=== PATIENT | female | born 1985 | race Caucasian/White ===

== ENCOUNTER 2022-07-11 23:13 | Emergency (ER) | payer BC ==
[2022-07-11 23:26] VITALS: RESP 16; TEMP 97.7
[2022-07-11] MEDS ORDERED: SODIUM CHLORIDE 0.9% 1,000 ML IV STA (23:53)
[2022-07-11] MEDS ORDERED: METOCLOPRAMIDE 5 MG/ML 2 ML VIAL IVP STA (23:53)
[2022-07-12 00:10] LABS: Basophils % (A) 0 %; Eosinophils # (A) 0.2 k/uL (0-0.7); Eosinophils % (A) 2 %; HCT 43.1 % (34.0-46.0); HGB 14.9 gm/dL (11.4-16.0); Lymphocytes # (A) 2.5 k/uL (1.0-4.8); Lymphocytes % (A) 29 %; MCH 29.9 pg (25.0-35.0); MCHC 34.5 g/dL (31.0-37.0); MCV 86.7 fL (80.0-100.0); Monocytes # (A) 0.4 k/uL (0-1.0); Monocytes % (A) 5 %; Neutrophils # (A) 5.2 k/uL (1.3-7.7); Neutrophils % (A) 62 %; Platelet Count 252 k/uL (150-450); RBC 4.97 m/uL (3.80-5.40); RDW 12.4 % (11.5-15.5); WBC 8.4 k/uL (3.8-10.6)
[2022-07-12 00:21] LABS: ALT 120 U/L (4-34); AST 77 U/L (14-36); African American GFR (CKD) >90 (>60 ml/min/1.73 sqM); Albumin 4.8 g/dL (3.5-5.0); Alkaline Phosphatase 93 U/L (38-126); Amylase 49 U/L (30-110); Anion Gap 14 mmol/L; Blood Urea Nitrogen 12 mg/dL (7-17); Carbon Dioxide 24 mmol/L (22-30); Chloride 100 mmol/L (98-107); Glucose 168 mg/dL (74-99); Lipase 106 U/L (23-300); Non-African American GFR(CKD) >90 (>60 ml/min/1.73 sqM); Potassium 3.3 mmol/L (3.5-5.1); Sodium 138 mmol/L (137-145); Total Bilirubin 0.9 mg/dL (0.2-1.3); Total Protein 8.6 g/dL (6.3-8.2)
[2022-07-12] MEDS ORDERED: POTASSIUM CHLORIDE ER 20 MEQ TAB.ER PO STA (00:29)
--- NOTE | 2022-07-12 00:35 | ED ---
Nausea/Vomiting/Diarrhea HPI - General Chief complaint: Nausea/Vomiting/Diarrhea Stated complaint: Nausea, vomitting Time Seen by Provider: 07/11/22 23:48 Source: patient Mode of arrival: ambulatory Limitations: no limitations - History of Present Illness Initial comments: Patient is a 37-year-old female presenting with chief complaint of nausea vomiting diarrhea for the last 4 days. Patient states that yesterday she was improving but today she was unable to tolerate fluids. No localized abdominal pain. No hematemesis, hematochezia, melena. No chest pain or difficulty breathing. Patient states that she can feel her heart racing. No fevers or chills. No dysuria, hematuria, urgency, frequency. - Related Data Allergies Allergy/AdvReac Type Severity Reaction Status Date / Time Sulfa (Sulfonamide Allergy Rash/Hives Verified 07/11/22 23:59 Antibiotics) Review of Systems ROS Statement: Those systems with pertinent positive or pertinent negative responses have been documented in the HPI. ROS Other: All systems not noted in ROS Statement are negative. General Exam Limitations: no limitations General appearance: alert, in no apparent distress Head exam: Present: atraumatic, normocephalic, normal inspection Eye exam: Present: normal appearance Neck exam: Present: normal inspection, full ROM Respiratory exam: Present: normal lung sounds bilaterally. Absent: respiratory distress, wheezes, rales, rhonchi, stridor Cardiovascular Exam: Present: normal rhythm, tachycardia, normal heart sounds. Absent: systolic murmur, diastolic murmur, rubs, gallop, clicks GI/Abdominal exam: Present: soft. Absent: distended, tenderness, guarding, rebound, rigid Neurological exam: Present: alert, oriented X3, CN II-XII intact Psychiatric exam: Present: normal affect, normal mood Skin exam: Present: warm, dry, intact, normal color. Absent: rash Course Vital Signs 07/11/22 07/12/22 23:24 01:33 Temperature 97.7 F Pulse Rate 121 H 80 Respiratory 16 16 Rate Blood Pressure 172/108 138/86 O2 Sat by Pulse 96 99 Oximetry Medical Decision Making - Medical Decision Making Was pt. sent in by a medical professional or institution (, PA, BLIND SLAT STAPLING MACHINE OPERATOR, urgent care, hospital, or [facility]...) When possible be specific @ -No Did you speak to anyone other than the patient for history (EMS, parent, family, police, friend...)? What history was obtained from this source @ -No Did you review nursing and triage notes (agree or disagree)? Why? @ -I reviewed and agree with nursing and triage notes Were old charts reviewed (outside hosp., previous admission, EMS record, old EKG, old radiological studies, urgent care reports/EKG's, [facility] records)? Report findings @ -No old charts were reviewed Differential Diagnosis (chest pain, altered mental status, abdominal pain women, abdominal pain men, vaginal bleeding, weakness, fever, dyspnea, syncope, headache, dizziness, GI bleed, back pain, seizure, CVA, palpatations, mental health, musculoskeletal)? @ -Differential includes gastroenteritis, cholecystitis, pancreatitis, appendicitis, ACS, this is not an all inclusive list EKG interpreted by me (3pts min.). @ -As above X-rays interpreted by me (1pt min.). @ -None done CT interpreted by me (1pt min.). @ -None done U/S interpreted by me (1pt. min.). @ -None done What testing was considered but not performed or refused? (CT, X-rays, U/S, labs)? Why? @ -None What meds were considered but not given or refused? Why? @ -None Did you discuss the management of the patient with other professionals (professionals i.e. , PA, BLIND SLAT STAPLING MACHINE OPERATOR, lab, RT, psych nurse, social work nurse, designer architect, teacher, helicopter officer, family caseworker)? Give summary @ -No Was smoking cessation discussed for >3mins.? @ -No Was critical care preformed (if so, how long)? @ -No Were there social determinants of health that impacted care today? How? (Homelessness, low income, unemployed, alcoholism, drug addiction, transportation, low edu. Level, literacy, decrease access to med. care, correction, rehab)? @ -No Was there de-escalation of care discussed even if they declined (Discuss DNR or withdrawal of care, Hospice)? DNR status @ -No What co-morbidities impacted this encounter? (DM, HTN, Smoking, COPD, CAD, Cancer, CVA, ARF, Chemo, Hep., AIDS, mental health diagnosis, sleep apnea, morbid obesity)? @ -None Was patient admitted / discharged? Hospital course, mention meds given and route, prescriptions, significant lab abnormalities, going to OR and other pertinent info. @ -Patient is a 37-year-old female presenting with chief complaint of nausea, vomiting, diarrhea. Last 4 days. Physical examination is unremarkable. Laboratories no leukocytosis or anemia. Potassium is 3.3, patient will receive oral replacement. Transaminitis as noted, patient has history of elevated LFTs. Urine shows signs of dehydration, hCG is negative. Patient is receiving IV fluids as well Reglan. On reassessment she reports resolution of her symptoms and wishes to be discharged home. Follow-up with PCP. Report back to ER with any new or worsening symptoms. Discussed return parameters and answered all questions. Patient conveyed verbal understanding and agreed to the plan. I discussed this case in detail with my attending Dr. Montoya Undiagnosed new problem with uncertain prognosis? @ -No Drug Therapy requiring intensive monitoring for toxicity (Heparin, Nitro, Insulin, Cardizem)? @ -No Were any procedures done? @ -No Diagnosis/symptom? @ -Gastroenteritis Acute, or Chronic, or Acute on Chronic? @ -Acute Uncomplicated (without systemic symptoms) or Complicated (systemic symptoms)? @ -Uncomplicated Side effects of treatment? @ -No Exacerbation, Progression, or Severe Exacerbation? @ -No Poses a threat to life or bodily function? How? (Chest pain, USA, PA, pneumonia, PE, COPD, DKA, ARF, appy, cholecystitis, CVA, Diverticulitis, Homicidal, Suicidal, threat to staff... and all critical care pts) @ -No - Lab Data Result diagrams: 07/12/22 00:05 07/12/22 00:05 Lab Results 07/12/22 07/12/22 07/12/22 Range/Units 00:05 00:05 00:54 WBC 8.4 (3.8-10.6) k/uL RBC 4.97 (3.80-5.40) m/uL Hgb 14.9 (11.4-16.0) gm/dL Hct 43.1 (34.0-46.0) % MCV 86.7 (80.0-100.0) fL MCH 29.9 (25.0-35.0) pg MCHC 34.5 (31.0-37.0) g/dL RDW 12.4 (11.5-15.5) % Plt Count 252 (150-450) k/uL MPV 8.0 Neutrophils % 62 % Lymphocytes % 29 % Monocytes % 5 % Eosinophils % 2 % Basophils % 0 % Neutrophils # 5.2 (1.3-7.7) k/uL Lymphocytes # 2.5 (1.0-4.8) k/uL Monocytes # 0.4 (0-1.0) k/uL Eosinophils # 0.2 (0-0.7) k/uL Basophils # 0.0 (0-0.2) k/uL Sodium 138 (137-145) mmol/L Potassium 3.3 L (3.5-5.1) mmol/L Chloride 100 (98-107) mmol/L Carbon Dioxide 24 (22-30) mmol/L Anion Gap 14 mmol/L BUN 12 (7-17) mg/dL Creatinine 0.64 (0.52-1.04) mg/dL Est GFR (CKD-EPI)AfAm >90 (>60 ml/min/1.73 sqM) Est GFR (CKD-EPI)NonAf >90 (>60 ml/min/1.73 sqM) Glucose 168 H (74-99) mg/dL Calcium 9.0 (8.4-10.2) mg/dL Total Bilirubin 0.9 (0.2-1.3) mg/dL AST 77 H (14-36) U/L ALT 120 H (4-34) U/L Alkaline Phosphatase 93 (38-126) U/L Total Protein 8.6 H (6.3-8.2) g/dL Albumin 4.8 (3.5-5.0) g/dL Amylase 49 (30-110) U/L Lipase 106 (23-300) U/L Urine Color Yellow Urine Appearance Clear (Clear) Urine pH 5.5 (5.0-8.0) Ur Specific [place] 1.015 (1.001-1.035) Urine Protein 1+ H (Negative) Urine Glucose (UA) 1+ H (Negative) Urine Ketones 1+ H (Negative) Urine Blood Trace H (Negative) Urine Nitrite Negative (Negative) Urine Bilirubin Negative (Negative) Urine Urobilinogen <2.0 (<2.0) mg/dL Ur Leukocyte Esterase Small H (Negative) Urine RBC 2 (0-5) /hpf Urine WBC 3 (0-5) /hpf Ur Squamous Epith Cells 2 (0-4) /hpf Urine Bacteria Occasional H (None) /hpf Hyaline Casts 1 (0-2) /lpf Urine Mucus Few H (None) /hpf Urine HCG, Qual (Not Detectd) 07/12/22 Range/Units 00:54 WBC (3.8-10.6) k/uL RBC (3.80-5.40) m/uL Hgb (11.4-16.0) gm/dL Hct (34.0-46.0) % MCV (80.0-100.0) fL MCH (25.0-35.0) pg MCHC (31.0-37.0) g/dL RDW (11.5-15.5) % Plt Count (150-450) k/uL MPV Neutrophils % % Lymphocytes % % Monocytes % % Eosinophils % % Basophils % % Neutrophils # (1.3-7.7) k/uL Lymphocytes # (1.0-4.8) k/uL Monocytes # (0-1.0) k/uL Eosinophils # (0-0.7) k/uL Basophils # (0-0.2) k/uL Sodium (137-145) mmol/L Potassium (3.5-5.1) mmol/L Chloride (98-107) mmol/L Carbon Dioxide (22-30) mmol/L Anion Gap mmol/L BUN (7-17) mg/dL Creatinine (0.52-1.04) mg/dL Est GFR (CKD-EPI)AfAm (>60 ml/min/1.73 sqM) Est GFR (CKD-EPI)NonAf (>60 ml/min/1.73 sqM) Glucose (74-99) mg/dL Calcium (8.4-10.2) mg/dL Total Bilirubin (0.2-1.3) mg/dL AST (14-36) U/L ALT (4-34) U/L Alkaline Phosphatase (38-126) U/L Total Protein (6.3-8.2) g/dL Albumin (3.5-5.0) g/dL Amylase (30-110) U/L Lipase (23-300) U/L Urine Color Urine Appearance (Clear) Urine pH (5.0-8.0) Ur Specific [place] (1.001-1.035) Urine Protein (Negative) Urine Glucose (UA) (Negative) Urine Ketones (Negative) Urine Blood (Negative) Urine Nitrite (Negative) Urine Bilirubin (Negative) Urine Urobilinogen (<2.0) mg/dL Ur Leukocyte Esterase (Negative) Urine RBC (0-5) /hpf Urine WBC (0-5) /hpf Ur Squamous Epith Cells (0-4) /hpf Urine Bacteria (None) /hpf Hyaline Casts (0-2) /lpf Urine Mucus (None) /hpf Urine HCG, Qual Not Detected (Not Detectd) Disposition Clinical Impression: Nausea & vomiting Disposition: HOME SELF-CARE Condition: Good Instructions (If sedation given, give patient instructions): Acute Nausea and Vomiting (ED) Additional Instructions: Follow-up with PCP. Report back to ER with any new or worsening symptoms. Take Zofran as prescribed. Is patient prescribed a controlled substance at d/c from ED?: No Referrals: Aryan Owens MD [Primary Care Provider] - 1-2 days Time of Disposition: 01:22
[2022-07-12 01:03] LABS: Appearance,Urine Clear (Clear); Bacteria,Urine Occasional /hpf; Bilirubin,Urine Negative (Negative); Blood,Urine Trace (Negative); Color,Urine Yellow; Glucose,Urine (UA) 1+ (Negative); Hyaline Casts,Urine 1 /lpf (0-2); Ketones,Urine 1+ (Negative); Leukocyte Esterase,Urine Small (Negative); Mucus,Urine Few /hpf; Nitrite,Urine Negative (Negative); PH, Urine 5.5 (5.0-8.0); Protein,Urine 1+ (Negative); RBC,Urine 2 /hpf (0-5); Specific Gravity,Urine 1.015 (1.001-1.035); Squamous Epithelial Cell,Urine 2 /hpf (0-4); Urobilinogen,Urine <2.0 mg/dL (<2.0); WBC,Urine 3 /hpf (0-5)
[2022-07-12 01:34] VITALS: BP 138/86; PULSE 80
== END 2022-07-12 01:32 | disposition home or self-care (01) ==
LOC: EC 23:13
DX: R11.2 Nausea with vomiting, unspecified (principal); Z88.2 Allergy status to sulfonamides
CPT/HCPCS: 36415; 93005; 80053; 82150; 83690; 85025; 81001; 81025; 99284; 96374; 96361; J2765

== ENCOUNTER 2022-10-17 20:45 | Observation (INO) | payer BC ==
[2022-10-17] MEDS ORDERED: ONDANSETRON 4 MG/2 ML VIAL IVP STA (21:43)
[2022-10-17] MEDS ORDERED: PANTOPRAZOLE 40 MG/10 ML VIAL IVP STA (21:43)
[2022-10-17] MEDS ORDERED: SODIUM CHLORIDE 0.9% 1,000 ML IV STA (21:43)
--- NOTE | 2022-10-17 21:46 | ED ---
General Adult HPI - General Chief complaint: Arrhythmia/Palpitations Stated complaint: Palpitations N/V/ Time Seen by Provider: 10/17/22 21:26 Source: patient Mode of arrival: ambulatory - History of Present Illness Initial comments: Dictation was produced using [employer] dictation software. please excuse any grammatical, word or spelling errors. Chief Complaint: 37-year-old female presents emergency department for nausea vomiting tachycardia History of Present Illness: She is 37-year-old female she has past medical history of tachycardia. She takes rate controlling medications. Patient over the last approximately 12 hours has been experiencing intractable nausea and vomiting. Patient's exposed her who is sick with cold of flulike symptoms. Patient has a fever. Patient reports that her symptoms are severe temperature seat or drink she immediately vomits. States that her emesis is nonbilious not bloody. She does report some discomfort whenever she tries to take anything orally. Denies any fever or constitutional symptoms. No sore t hroat or runny nose. no cough or respiratory symptoms. Patient has any abdominal pain currently. The ROS documented in this emergency department record has been reviewed and confirmed by me. Those systems with pertinent positive or negative responses have been documented in the HPI. All other systems are other negative and/or noncontributory. - Related Data Allergies Allergy/AdvReac Type Severity Reaction Status Date / Time pineapple Allergy Anaphylaxis Verified 10/17/22 21:19 Sulfa (Sulfonamide Allergy Rash/Hives Verified 10/17/22 21:19 Antibiotics) Review of Systems ROS Statement: Those systems with pertinent positive or pertinent negative responses have been documented in the HPI. ROS Other: All systems not noted in ROS Statement are negative. Past Medical History Past Medical History: Diabetes Mellitus Additional Past Medical History / Comment(s): inappropriate sinus tachycardia, type 1 Past Surgical History: Adenoidectomy, Cholecystectomy, Tonsillectomy Additional Past Surgical History / Comment(s): endometriosis laproscopy Past Psychological History: Anxiety Smoking Status: Never smoker Past Alcohol Use History: None Reported Past Drug Use History: Marijuana General Exam - General Exam Comments Initial Comments: PHYSICAL EXAM: General Impression: Alert and oriented x3, not in acute distress HEENT: Normocephalic atraumatic, extra-ocular movements intact, pupils equal and reactive to light bilaterally, mucous membranes moist. Cardiovascular: Heart regular rate and rhythm Chest: Able to complete full sentences, no retractions, no tachypnea Abdomen: abdomen soft, non-tender, non-distended, no organomegaly Musculoskeletal: Pulses present and equal in all extremities, no peripheral edema Motor: no focal deficits noted Neurological: CN II-XII grossly intact, no focal motor or sensory deficits noted Skin: Intact with no visualized rashes Psych: Normal affect and mood Course Vital Signs 10/17/22 21:13 Temperature 97.7 F Pulse Rate 122 H Respiratory 22 Rate Blood Pressure 186/110 O2 Sat by Pulse 99 Oximetry Medical Decision Making - Medical Decision Making Was pt. sent in by a medical professional or institution (, PA, NURSE CHEMICAL DEPENDENCY, urgent care, hospital, or detention...) When possible be specific @ -[No] Did you speak to anyone other than the patient for history (EMS, parent, family, police, friend...)? What history was obtained from this source @ -[No] Did you review nursing and triage notes (agree or disagree)? Why? @ -[I reviewed and agree with nursing and triage notes] Were old charts reviewed (outside hosp., previous admission, EMS record, old EKG, old radiological studies, urgent care reports/EKG's, detention records)? Report findings @ -[No old charts were reviewed] Differential Diagnosis (chest pain, altered mental status, abdominal pain women, abdominal pain men, vaginal bleeding, musculoskeletal, weakness, fever, dyspnea, syncope, headache, dizziness, GI bleed, back pain, seizure, CVA, palpatations, mental health)? @ -Differential Abdominal Pain Women: Appendicitis, Cholecystitis, diverticulosis, ischemic bowel, pancreatitis, hepatitis, UTI, gastroenteritis, AAA, incarcerated hernia, bowel obstruction, constipation, inflammatory bowel, hepatitis, peptic ulcer disease, splenic i nfarction, perforated viscus, vulvitis, ovarian torsion, PID, kidney stone, placenta abruption, this is not meant to be an all-inclusive list EKG interpreted by me (3pts min.). @ -[None done] X-rays interpreted by me (1pt min.). @ -[None done] CT interpreted by me (1pt min.). @ -[None done] U/S interpreted by me (1pt. min.). @ -[None done] What testing was considered but not performed or refused? (CT, X-rays, U/S, labs)? Why? @ -[None] What meds were considered but not given or refused? Why? @ -[None] Did you discuss the management of the patient with other professionals (professionals i.e. , PA, NURSE CHEMICAL DEPENDENCY, lab, RT, psych nurse, socially responsible investment adviser, hybrid corn breeder, teacher, engineering officer, case folder)? Give summary @ -[No] Was smoking cessation discussed for >3mins.? @ -[No] Was critical care preformed (if so, how long)? @ -[No] Were there social determinants of health that impacted care today? How? (Homelessness, low income, unemployed, alcoholism, drug addiction, transportation, low edu. Level, literacy, decrease access to med. care, retirement, rehab)? @ -[No] Was there de-escalation of care discussed even if they declined (Discuss DNR or withdrawal of care, Hospice)? DNR status @ -[No] What co-morbidities impacted this encounter? (DM, HTN, Smoking, COPD, CAD, C ancer, CVA, ARF, Chemo, Hep., AIDS, mental health diagnosis, sleep apnea, morbid obesity)? @ -Arrhythmias Was patient admitted / discharged? Hospital course, mention meds given and route, prescriptions, significant lab abnormalities, going to OR and other pertinent info. @ -37-year-old female presents with intractable vomiting. Vital signs are stable. She is tachycardic but his baseline has tachycardia. She takes chronic medications to suppress tachydysrhythmias. Labs are within acceptable limits. Disposition options were discussed. Patient is agreeable for admission due to risk of converting to tach dysrhythmia especially if she is unable to tolerate oral intake Undiagnosed new problem with uncertain prognosis? @ -[No] Drug Therapy requiring intensive monitoring for toxicity (Heparin, Nitro, Insulin, Cardizem)? @ -[No] Were any procedures done? @ -[No] Diagnosis/symptom? Acute, or Chronic, or Acute on Chronic? Uncomplicated (without systemic symptoms) or Complicated (systemic symptoms)? @ -[default] Side effects of treatment? @ -[No] Exacerbation, Progression, or Severe Exacerbation? @ -[No] Poses a threat to life or bodily function? How? (Chest pain, USA, [place], pneumonia, PE, COPD, DKA, ARF, appy, cholecystitis, CVA, Diverticulitis, Homicidal, Suicidal, threat to staff... and all critical care pts) @ -[No] - Lab Data Result diagrams: 10/17/22 22:20 10/17/22 22:20 Lab Results 10/17/22 10/17/22 10/17/22 Range/Units 22:20 22:20 22:20 WBC 9.7 (3.8-10.6) k/uL RBC 4.87 (3.80-5.40) m/uL Hgb 14.8 (11.4-16.0) gm/dL Hct 43.2 (34.0-46.0) % MCV 88.6 (80.0-100.0) fL MCH 30.3 (25.0-35.0) pg MCHC 34.2 (31.0-37.0) g/dL RDW 12.4 (11.5-15.5) % Plt Count 264 (150-450) k/uL MPV 7.6 Neutrophils % 81 % Lymphocytes % 14 % Monocytes % 4 % Eosinophils % 1 % Basophils % 0 % Neutrophils # 7.8 H (1.3-7.7) k/uL Lymphocytes # 1.3 (1.0-4.8) k/uL Monocytes # 0.4 (0-1.0) k/uL Eosinophils # 0.1 (0-0.7) k/uL Basophils # 0.0 (0-0.2) k/uL Sodium 137 (137-145) mmol/L Potassium 3.4 L (3.5-5.1) mmol/L Chloride 97 L (98-107) mmol/L Carbon Dioxide 26 (22-30) mmol/L Anion Gap 14 mmol/L BUN 9 (7-17) mg/dL Creatinine 0.53 (0.52-1.04) mg/dL Est GFR (CKD-EPI)AfAm >90 (>60 ml/min/1.73 sqM) Est GFR (CKD-EPI)NonAf >90 (>60 ml/min/1.73 sqM) Glucose 154 H (74-99) mg/dL Calcium 9.3 (8.4-10.2) mg/dL Magnesium 1.8 (1.6-2.3) mg/dL Troponin I <0.012 (0.000-0.034) ng/mL HCG, Quant <2.4 mIU/mL Disposition Clinical Impression: Gastroenteritis Disposition: ADMITTED IP TO THIS HOSP Condition: Fair Referrals: Aryan Owens MD [Primary Care Provider] - 1-2 days Decision Time: 00:47
[2022-10-17 22:52] LABS: African American GFR (CKD) >90 (>60 ml/min/1.73 sqM); Anion Gap 14 mmol/L; Blood Urea Nitrogen 9 mg/dL (7-17); Calcium 9.3 mg/dL (8.4-10.2); Carbon Dioxide 26 mmol/L (22-30); Chloride 97 mmol/L (98-107); Glucose 154 mg/dL (74-99); Magnesium 1.8 mg/dL (1.6-2.3); Non-African American GFR(CKD) >90 (>60 ml/min/1.73 sqM); Potassium 3.4 mmol/L (3.5-5.1); Sodium 137 mmol/L (137-145)
[2022-10-17 22:54] LABS: Basophils % (A) 0 %; Eosinophils # (A) 0.1 k/uL (0-0.7); Eosinophils % (A) 1 %; HCT 43.2 % (34.0-46.0); HGB 14.8 gm/dL (11.4-16.0); Lymphocytes # (A) 1.3 k/uL (1.0-4.8); Lymphocytes % (A) 14 %; MCH 30.3 pg (25.0-35.0); MCHC 34.2 g/dL (31.0-37.0); MCV 88.6 fL (80.0-100.0); Mean Platelet Volume 7.6; Monocytes # (A) 0.4 k/uL (0-1.0); Monocytes % (A) 4 %; Neutrophils # (A) 7.8 k/uL (1.3-7.7); Neutrophils % (A) 81 %; Platelet Count 264 k/uL (150-450); RBC 4.87 m/uL (3.80-5.40); RDW 12.4 % (11.5-15.5); WBC 9.7 k/uL (3.8-10.6)
[2022-10-17 23:08] LABS: HCG,Quantitative Serum <2.4 mIU/mL
[2022-10-17] MEDS ORDERED: MAG HYDROX/AL HYDROX/SIMETH 30 ML, HYOSCYAMINE ELIXIR 10 ML, LIDOCAINE 2% GLYDO JELLY 1... PO STA ×3 (23:29)
[2022-10-18] MEDS ORDERED: NALOXONE 0.4 MG/ML 1 ML VIAL IV PRN (00:42)
[2022-10-18] MEDS: SODIUM CHLORIDE 0.9% 1,000 ML IV SCH ×3 (01:13→16:39)
[2022-10-18] MEDS: ONDANSETRON 4 MG/2 ML VIAL IVP PRN ×3 (07:08→21:51)
[2022-10-18] MEDS: metFORMIN 500 MG TAB PO SCH ×2 (09:39→21:51)
[2022-10-18] MEDS: IVABRADINE HCL 7.5 MG PO SCH ×2 (09:40→21:51)
[2022-10-18 10:21] LABS: ALT 59 U/L (4-34); AST 52 U/L (14-36); African American GFR (CKD) >90 (>60 ml/min/1.73 sqM); Albumin 4.3 g/dL (3.5-5.0); Albumin/Globulin Ratio 1.2; Alkaline Phosphatase 83 U/L (38-126); Amylase 56 U/L (30-110); Anion Gap 11 mmol/L; Blood Urea Nitrogen 8 mg/dL (7-17); Calcium 8.5 mg/dL (8.4-10.2); Carbon Dioxide 25 mmol/L (22-30); Chloride 103 mmol/L (98-107); Globulin 3.6 g/dL; Glucose 114 mg/dL (74-99); Lipase 167 U/L (23-300); Non-African American GFR(CKD) >90 (>60 ml/min/1.73 sqM); Potassium 3.5 mmol/L (3.5-5.1); Sodium 139 mmol/L (137-145); Total Bilirubin 0.9 mg/dL (0.2-1.3); Total Protein 7.9 g/dL (6.3-8.2)
[2022-10-18] MEDS ORDERED: PANTOPRAZOLE 40 MG/10 ML VIAL IVP SCH (11:00)
[2022-10-18] MEDS: METOPROLOL SUCCINATE (ER) 25 MG TAB.ER.24H PO SCH (11:36)
[2022-10-18 12:13] LABS: Glucose,Whole Blood 102 mg/dL (70-110)
--- NOTE | 2022-10-18 12:57 | P.HPIM ---
History of Present Illness H&P Date: 10/18/22 History of present illness; patient is a 37-year-old lady with past medical history significant for insulin-dependent diabetes mellitus, tachycardias who presented to the hospital because of persistent nausea and vomiting. Patient has been vomiting nonstop for the last 24 hours, denies any abdominal pain. States whatever she tries to eat or drink she immediately vomited out. Denies any diarrhea or altered bowel movements. Denies any chest pain or shortness of breath. Patient also had fever at home. Because of persistent nausea and vomiting, patient came to the ER. Initial lab work done in the ER showed WBC 9.7, hemoglobin 14.8, platelet count 264, sodium 137, potassium 3.4, BUNs 9, creatinine 0.53, Patient was admitted to general medicine service for further evaluation and treatment REVIEW OF SYSTEMS: CONSTITUTIONAL: No fever, no malaise, no fatigue. HEENT: No recent visual problems or hearing problems. Denied any sore throat. CARDIOVASCULAR: No chest pain, orthopnea, PND, no palpitations, no syncope. PULMONARY: No shortness of breath, no cough, no hemoptysis. GASTROINTESTINAL: As mentioned in HPI NEUROLOGICAL: No headaches, no weakness, no numbness. HEMATOLOGICAL: Denies any bleeding or petechiae. GENITOURINARY: Denies any burning micturition, frequency, or urgency. MUSCULOSKELETAL/RHEUMATOLOGICAL: Denies any joint pain, swelling, or any muscle pain. ENDOCRINE: Denies any polyuria or polydipsia. The rest of the 14-point review of systems is negative. PHYSICAL EXAMINATION: GENERAL: The patient is alert and oriented x3, not in any acute distress. Well developed, well nourished. HEENT: Pupils are round and equally reacting to light. EOMI. No scleral icterus. No conjunctival pallor. Normocephalic, atraumatic. No pharyngeal erythema. No thyromegaly. CARDIOVASCULAR: S1 and S2 present. No murmurs, rubs, or gallops. PULMONARY: Chest is clear to auscultation, no wheezing or crackles. ABDOMEN: Soft, nontender, nondistended, normoactive bowel sounds. No palpable organomegaly. MUSCULOSKELETAL: No joint swelling or deformity. EXTREMITIES: No cyanosis, clubbing, or pedal edema. NEUROLOGICAL: Gross neurological examination did not reveal any focal deficits. SKIN: No rashes. Assessment and plan Nausea and vomiting Gastritis Hypokalemia Tachycardias Insulin-dependent diabetes mellitus Monitor vital signs Monitor CBC Order stat CMP Stat lipase level ordered Ultrasound abdomen Continue IV fluids Continue antiemetics Start IV Protonix 40 mg twice a day. Start Carafate resume home meds DVT prophylaxis: Past Medical History Past Medical History: Diabetes Mellitus Additional Past Medical History / Comment(s): inappropriate sinus tachycardia for [address]years [address] sees Dr. Soliman, DM type 1, pancreatitis History of Any Multi-Drug Resistant Organisms: None Reported Past Surgical History: Adenoidectomy, Cholecystectomy, Tonsillectomy Additional Past Surgical History / Comment(s): endometriosis laproscopy Past Anesthesia/Blood Transfusion Reactions: No Reported Reaction Past Psychological History: Anxiety Smoking Status: Never smoker Past Alcohol Use History: Rare Past Drug Use History: Marijuana Additional Drug Use History / Comment(s): occasional edibles - Past Family History Mother Family Medical History: Hyperlipidemia Father Family Medical History: Diabetes Mellitus Additional Family Medical History / Comment(s): inappropriate sinus tachycardia Medications and Allergies Home Medications Medication Instructions Recorded Confirmed Type ALPRAZolam [Xanax] 0.5 mg PO BID PRN 10/18/22 10/18/22 History Glucagon [Gvoke Pfs 1-Pack Syringe] 1 mg SQ ONCE PRN 10/18/22 10/18/22 History Insulin Aspart (Niacinamide) 20 - 30 units SQ AC-TID 10/18/22 10/18/22 History [Fiasp 100 Unit/ml Flextouch Pen] Insulin Glargine,Hum.rec.anlog 55 units SQ 10/18/22 10/18/22 History [Toujeo Solostar] Ivabradine HCl [Corlanor] 7.5 mg PO BID 10/18/22 10/18/22 History Levalbuterol Hfa Inhaler [Xopenex 1 puff INHALATION RT-QID PRN 10/18/22 10/18/22 History Hfa Inhaler] Metoprolol Succinate [Metoprolol 25 mg PO DAILY@1200 10/18/22 10/18/22 History Succinate ER] Montelukast [Singulair] 10 mg PO HS 10/18/22 10/18/22 History Omeprazole [PriLOSEC] 20 mg PO AC-BRKFST 10/18/22 10/18/22 History Pioglitazone [Actos] 15 mg PO DAILY 10/18/22 10/18/22 History Rizatriptan Odt [Maxalt Manager Of Health] 10 mg PO DAILY PRN 10/18/22 10/18/22 History Semaglutide [Rybelsus] 7 mg PO DAILY@0700 10/18/22 10/18/22 History lisinopriL 2.5 mg PO HS 10/18/22 10/18/22 History metFORMIN HCL ER [Glucophage XR] 1,000 mg PO DAILY 10/18/22 10/18/22 History metFORMIN HCL ER [Glucophage XR] 500 mg PO HS 10/18/22 10/18/22 History Allergies Allergy/AdvReac Type Severity Reaction Status Date / Time pineapple Allergy Anaphylaxis Verified 10/18/22 12:11 Sulfa (Sulfonamide Allergy Rash/Hives Verified 10/18/22 12:11 Antibiotics) sulfamethoxazole Allergy Rash/Hives Verified 10/18/22 12:11 [From Bactrim] trimethoprim [From Bactrim] Allergy Rash/Hives Verified 10/18/22 12:11 Physical Exam Vitals: Vital Signs Temp Pulse Pulse Resp BP BP Pulse Ox 10/18/22 07:00 98.0 F 110 H 14 129/71 98 10/18/22 02:26 97 155/87 10/18/22 01:30 98.1 F 110 H 16 173/109 99 10/18/22 01:10 110 H 16 158/88 97 10/17/22 21:13 97.7 F 122 H 22 186/110 99 Intake and Output 10/17/22 10/18/22 10/18/22 22:59 06:59 14:59 Other: # Voids 1 Weight 86.636 kg 86.636 kg Results CBC & Chem 7: 10/17/22 22:20 10/18/22 09:41 Labs: Abnormal Lab Results - Last 24 Hours (Table) 10/17/22 10/17/22 Range/Units 22:20 22:20 Neutrophils # 7.8 H (1.3-7.7) k/uL Potassium 3.4 L (3.5-5.1) mmol/L Chloride 97 L (98-107) mmol/L Glucose 154 H (74-99) mg/dL Thrombosis Risk Factor Assmnt - Choose All That Apply Any of the Below Risk Factors Present?: Yes Each Factor Represents 1 point: Obesity (BMI >25) Other Risk Factors: No Other congenital or acquired thrombophilia - If yes, enter type in comment: No Thrombosis Risk Factor Assessment Total Risk Factor Score: 1 Thrombosis Risk Factor Assessment Level: Low Risk
--- NOTE | 2022-10-18 14:41 | US ---
EXAMINATION TYPE: US abdomen complete DATE OF EXAM: 10/18/2022 COMPARISON: NONE CLINICAL INDICATION: Female, 37 years old with history of Nausea and vomiting; Nausea and vomiting. H x cholecystectomy in 2016. TECHNIQUE: Multiple sonographic images of the abdomen are obtained. FINDINGS: EXAM MEASUREMENTS: Liver Length: 16.3 cm Gallbladder Wall: Surgically absent. CBD: 0.9 cm Spleen: 9.7 cm Right Kidney: 11.9 x 6.3 x 4.3 cm Left Kidney: 12.0 x 5.8 x 5.1 cm RACEBOOK WRITER NOTES: *Exam is limited due to overlying bowel gas. Pancreas: Tail was obscured due to gas*. Liver: Appears heterogeneous with increased echogenicity and attenuation. Gallbladder: Surgically absent. Evidence for sonographic Charles's sign: No CBD: Appears wnl post-cholecystectomy. Spleen: Appears wnl Right Kidney: No hydronephrosis or masses seen Left Kidney: Renal pelvis appears dilated medially. Upper IVC: Appears wnl Abd Aorta: Appears wnl IMPRESSION: No evidence for acute abdominal process. The gallbladder appears surgically absent. Common bile duct is dilated up to 9 mm which can be seen in setting of postcholecystectomy physiology.
[2022-10-18] MEDS: SUCRALFATE 1 GM TAB PO SCH (16:38)
[2022-10-18] MEDS: ACETAMINOPHEN TAB 325 MG TAB PO PRN (16:38)
[2022-10-18 17:46] LABS: Glucose,Whole Blood 97 mg/dL (70-110)
[2022-10-18] MEDS: PANTOPRAZOLE 40 MG/10 ML VIAL IVP SCH (21:51)
[2022-10-18] MEDS: INSULIN DETEMIR (LEVEMIR) 100 UNIT/ML SYR SQ SCH (21:58)
[2022-10-18 21:59] LABS: Glucose,Whole Blood 94 mg/dL (70-110)
[2022-10-19] MEDS: SODIUM CHLORIDE 0.9% 1,000 ML IV SCH ×4 (01:48→22:27)
[2022-10-19 06:11] LABS: HCT 39.6 % (34.0-46.0); HGB 13.1 gm/dL (11.4-16.0); MCH 29.7 pg (25.0-35.0); MCHC 33.1 g/dL (31.0-37.0); MCV 89.7 fL (80.0-100.0); Mean Platelet Volume 7.8; Platelet Count 234 k/uL (150-450); RBC 4.41 m/uL (3.80-5.40); RDW 12.8 % (11.5-15.5); WBC 8.5 k/uL (3.8-10.6)
[2022-10-19 06:34] LABS: ALT 46 U/L (4-34); AST 31 U/L (14-36); African American GFR (CKD) >90 (>60 ml/min/1.73 sqM); Albumin 3.8 g/dL (3.5-5.0); Albumin/Globulin Ratio 1.2; Alkaline Phosphatase 74 U/L (38-126); Anion Gap 8 mmol/L; Blood Urea Nitrogen 6 mg/dL (7-17); Calcium 8.1 mg/dL (8.4-10.2); Carbon Dioxide 23 mmol/L (22-30); Chloride 106 mmol/L (98-107); Globulin 3.3 g/dL; Glucose 108 mg/dL (74-99); Non-African American GFR(CKD) >90 (>60 ml/min/1.73 sqM); Sodium 137 mmol/L (137-145); Total Bilirubin 0.8 mg/dL (0.2-1.3); Total Protein 7.1 g/dL (6.3-8.2)
[2022-10-19 06:40] LABS: Potassium 3.6 mmol/L (3.5-5.1)
[2022-10-19] MEDS: ONDANSETRON 4 MG/2 ML VIAL IVP PRN ×2 (06:43→13:58)
[2022-10-19 06:46] LABS: Glucose,Whole Blood 113 mg/dL (70-110)
[2022-10-19] MEDS: SUCRALFATE 1 GM TAB PO SCH ×3 (06:46→18:10)
[2022-10-19 07:44] VITALS: RESP 16
[2022-10-19] MEDS: metFORMIN 500 MG TAB PO SCH ×2 (09:32→22:26)
[2022-10-19] MEDS: IVABRADINE HCL 7.5 MG PO SCH ×2 (09:32→21:55)
[2022-10-19] MEDS: PANTOPRAZOLE 40 MG/10 ML VIAL IVP SCH ×2 (09:32→22:26)
[2022-10-19 12:10] LABS: Glucose,Whole Blood 114 mg/dL (70-110)
[2022-10-19] MEDS: METOPROLOL SUCCINATE (ER) 25 MG TAB.ER.24H PO SCH (13:21)
[2022-10-19] MEDS: ACETAMINOPHEN TAB 325 MG TAB PO PRN (13:59)
[2022-10-19 17:26] LABS: Glucose,Whole Blood 95 mg/dL (70-110)
[2022-10-19] MEDS: METOCLOPRAMIDE 10 MG TAB PO SCH (18:10)
[2022-10-19] MEDS: INSULIN DETEMIR (LEVEMIR) 100 UNIT/ML SYR SQ SCH (21:54)
[2022-10-19 21:55] LABS: Glucose,Whole Blood 101 mg/dL (70-110)
[2022-10-20 05:43] VITALS: TEMP 98.2
[2022-10-20] MEDS: SODIUM CHLORIDE 0.9% 1,000 ML IV SCH (06:20)
[2022-10-20] MEDS: METOCLOPRAMIDE 10 MG TAB PO SCH ×2 (06:21→11:25)
[2022-10-20] MEDS: SUCRALFATE 1 GM TAB PO SCH (06:21)
[2022-10-20 06:39] LABS: Glucose,Whole Blood 100 mg/dL (70-110)
[2022-10-20] MEDS: metFORMIN 500 MG TAB PO SCH (08:20)
[2022-10-20] MEDS: PANTOPRAZOLE 40 MG/10 ML VIAL IVP SCH (08:20)
[2022-10-20] MEDS: IVABRADINE HCL 7.5 MG PO SCH (08:21)
[2022-10-20 08:36] VITALS: BP 155/89; PULSE 101
[2022-10-20] MEDS: METOPROLOL SUCCINATE (ER) 25 MG TAB.ER.24H PO SCH (11:25)
[2022-10-20] MEDS ORDERED: SUCRALFATE 1 GM TAB PO SCH (12:30)
[2022-10-20] MEDS ORDERED: PANTOPRAZOLE 40 MG TABLET PO SCH (17:30)
--- NOTE | 2022-10-24 02:25 | PN ---
PROGRESS NOTE DATE OF SERVICE: 10/19/2022 CHIEF COMPLAINT: Intractable nausea and vomiting. HISTORY OF PRESENT ILLNESS: This lady is doing a little bit better. She is keeping things down. We were trying to see if she can undergo upper GI endoscopy to rule out gastric outlet obstruction. PHYSICAL EXAMINATION: CHEST: Clear. CARDIAC: Exam is normal. ABDOMEN: Soft, nontender. There are no masses. IMPRESSION: 1. Intractable nausea and vomiting. 2. Diabetes mellitus. 3. Possible gastroparesis. 4. Possible gastric outlet obstruction. PLAN: Continue with IV fluids and slowly advance diet while waiting to see if she would be a candidate for inpatient endoscopy. MMODL / IJN: [id number] /
--- NOTE | 2022-10-24 03:40 | DS ---
DISCHARGE SUMMARY CHIEF COMPLAINT: Intractable nausea and vomiting. HISTORY OF PRESENT ILLNESS AND PHYSICAL EXAMINATION: Details of this lady's history and physical can be found in the initial workup. LABORATORY STUDIES: While she is in the hospital, she had laboratory studies, details of which can be found in the laboratory section of her chart. COURSE IN THE HOSPITAL: After admission, she was placed on bedrest, starting intravenous fluids and given antiemetics. She continued to have difficulty and then Reglan was started and things began to improve with less abdominal discomfort and vomiting. She was referred to GI and surgery for endoscopy, but nobody was available. She was doing well and it was felt she could go home and be scoped as an outpatient. FINAL DIAGNOSES: 1. Intractable nausea and vomiting. 2. Possible gastric outlet obstruction. 3. Possible gastroparesis. 4. Insulin-dependent diabetes mellitus. 5. Dehydration. OPERATIONS: None. CONSULTATIONS: None, she is improved. GABY / WOODY: [id number] /
== END 2022-10-20 12:14 | disposition home or self-care (01) ==
LOC: EC 20:45 → 6NMEDSUR 10-18 00:42
PROVIDERS: ADMIT Family Medicine; ATTEND Family Medicine
DX: K29.70 Gastritis, unspecified, without bleeding (principal); E87.6 Hypokalemia; F41.9 Anxiety disorder, unspecified; E10.9 Type 1 diabetes mellitus without complications; F12.90 Cannabis use, unspecified, uncomplicated; Z90.49 Acquired absence of other specified parts of digestive tract; Z88.2 Allergy status to sulfonamides; Z32.02 Encounter for pregnancy test, result negative; Z79.4 Long term (current) use of insulin; Z83.3 Family history of diabetes mellitus; Z83.438 Family history of other disorder of lipoprotein metabolism and other lipidemia; Z79.899 Other long term (current) drug therapy; Z79.84 Long term (current) use of oral hypoglycemic drugs
CPT/HCPCS: 96361 ×4; 96375 ×2; 96376 ×3; 96374; 99284; 36415; 80053 ×2; 80048; 82150; 83690; 83735; 84484; 85025; 85027; 84702; 76700; G0378 ×3; J2405 ×3; C9113 ×4; 93005

== ENCOUNTER 2022-12-11 09:43 | Day surgery (SDC) | payer BC ==
[~2022-12-11 09:43] MED LIST: LACTATED RINGERS 1,000 ML IV SCH
[2022-12-11 10:07] VITALS: RESP 16; TEMP 96.6
[2022-12-11] MEDS ORDERED: ONDANSETRON 4 MG/2 ML VIAL ONE (10:18)
[2022-12-11 10:21] LABS: Glucose,Whole Blood 153 mg/dL (70-110)
[2022-12-11] MEDS ORDERED: LIDOCAINE 2% INJ 20 MG/ML (2 ML VIAL) ONE (10:52)
[2022-12-11] MEDS ORDERED: PROPOFOL 10 MG/ML 20 ML VIAL IV ONE (10:52)
--- NOTE | 2022-12-11 11:09 | P.PCN ---
Date of Procedure: 12/11/22 Procedure(s) Performed: BRIEF HISTORY: Patient is a 37-year-old, pleasant, white white female scheduled for an upper endoscopy as a part of evaluation of chronic nausea vomiting for the last 6 months duration. Presently on Protonix 40 mg daily, Reglan and Carafate as needed and symptoms are gradually and. PROCEDURE PERFORMED: Esophagogastroduodenoscopy with biopsy. PREOPERATIVE DIAGNOSIS: Chronic nausea vomiting of 6 months duration. IV sedation per anesthesia. PROCEDURE: After informed consent was obtained, the patient was brought into the endoscopy unit. IV sedation was administered by Anesthesia under continuous monitoring. Initially the Olympus GIF-140 video endoscope was inserted into the mouth. Esophagus intubated without any difficulty. It was gradually advanced into the stomach and duodenum and carefully examined. The bulb and the second part of the duodenum appeared normal. Biopsies were done from the duodenum to rule out celiac disease. The scope at this time was withdrawn to the stomach, adequately insufflated with air, and upon careful examination, mucosa of the antrum, had mild gastritis with patchy areas of erythema and biopsies were done from this area. Mucosa of the body, cardia and the fundus appeared normal. The scope was then withdrawn into the esophagus. The GE junction was located at 39 cm from the incisors. The esophagus appeared normal. There were no erosions or ulcerations seen, biopsies were done from the distal esophagus and the patient tolerated the procedure well. IMPRESSION: 1. Mild antral gastritis. 2. No evidence of esophagitis, peptic ulcer disease or gastric polyps. RECOMMENDATIONS: The findings of this examination were discussed with the patient as well as a family. She was advised to follow with the biopsy results. Continue with her current medications and follow antireflux measures.
[2022-12-11 11:41] VITALS: BP 122/77; PULSE 74
== END 2022-12-11 12:00 | disposition home or self-care (01) ==
LOC: ORWHC2ENDO 09:43
PROVIDERS: ATTEND Internal Medicine Gastroenterology
DX: K29.50 Unspecified chronic gastritis without bleeding (principal); E11.9 Type 2 diabetes mellitus without complications; J45.909 Unspecified asthma, uncomplicated; Z79.899 Other long term (current) drug therapy; Z88.2 Allergy status to sulfonamides; Z91.018 Allergy to other foods; F41.9 Anxiety disorder, unspecified; I49.9 Cardiac arrhythmia, unspecified; Z79.84 Long term (current) use of oral hypoglycemic drugs
CPT/HCPCS: 81025; 88305; 43239; J2704; J2001

== ENCOUNTER 2023-02-28 15:13 | Emergency (ER) | payer BC ==
[2023-02-28 15:33] VITALS: TEMP 98.7
[2023-02-28] MEDS ORDERED: diphenhydrAMINE 50 MG/ML 1 ML VIAL IVP STA (15:57)
[2023-02-28] MEDS ORDERED: SODIUM CHLORIDE 0.9% 2,000 ML IV STA (15:57)
[2023-02-28] MEDS ORDERED: METOCLOPRAMIDE 5 MG/ML 2 ML VIAL IVP STA (15:57)
[2023-02-28] MEDS ORDERED: KETOROLAC 15 MG/ML 1 ML VIAL IVP STA (15:57)
[2023-02-28] MEDS ORDERED: HYDROmorphone 0.5 MG/0.5 ML SYRINGE IVP STA (15:58)
--- NOTE | 2023-02-28 16:04 | ED ---
Abdominal Pain HPI - General Source: patient, RN notes reviewed Mode of arrival: ambulatory Limitations: no limitations <Frederick Membreno - Last Filed: 02/28/23 16:29> - History of Present Illness MD Complaint: abdominal pain -: hour(s), days(s) Location: diffuse Quality: cramping, aching Consistency: constant Improves With: nothing Worsens With: nothing Associated Symptoms: nausea, vomiting Treatments Prior to Arrival: other (0) <Too Cardona - Last Filed: 03/08/23 00:45> - General Chief Complaint: Abdominal Pain Stated Complaint: abd pain Time Seen by Provider: 02/28/23 15:39 - History of Present Illness Initial Comments: 38-year-old female presents emergency Department chief complaint of abdominal pain. Patient states his been increasing last 3 days. Patient does admit to nausea and vomiting unable to keep anything down. Patient states that she does have a history of diabetes and had a bout of pancreatitis in the past. She st ates this was prior to her cholecystectomy. She does admit that she was admitted in the past for intractable nausea and vomiting. Patient states she did have an EGD at that time showing mild gastritis patient states that she is on Protonix twice daily patient states her diabetes are well-controlled. (Frederick Membreno) 38 female DF for evaluation of possible abdominal pain main complaint nausea and vomiting. Intractable nausea vomiting (Too Cardona) - Related Data Home Medications Medication Instructions Recorded Confirmed ALPRAZolam [Xanax] 0.5 mg PO BID PRN 10/18/22 12/08/22 Glucagon [Gvoke Pfs 1-Pack Syringe] 1 mg SQ ONCE PRN 10/18/22 12/08/22 Insulin Aspart (Niacinamide) 20 - 30 units SQ AC-TID 10/18/22 12/08/22 [Fiasp 100 Unit/ml Flextouch Pen] Insulin Glargine,Hum.rec.anlog 55 units SQ HS 10/18/22 12/08/22 [Touguera Solostar] Ivabradine HCl [Corlanor] 7.5 mg PO BID 10/18/22 12/08/22 Levalbuterol Hfa Inhaler [Xopenex 1 puff INHALATION RT-QID PRN 10/18/22 12/08/22 Hfa Inhaler] Metoprolol Succinate [Metoprolol 25 mg PO DAILY@1200 10/18/22 12/08/22 Succinate ER] Montelukast [Singulair] 10 mg PO HS 10/18/22 12/08/22 Omeprazole [PriLOSEC] 20 mg PO AC-BRKFST 10/18/22 12/08/22 Pioglitazone [Actos] 15 mg PO DAILY 10/18/22 12/08/22 Rizatriptan Odt [Maxalt SHUTTLELESS LOOM WEAVER] 10 mg PO DAILY PRN 10/18/22 12/08/22 Semaglutide [Rybelsus] 7 mg PO DAILY@0700 10/18/22 12/08/22 lisinopriL 2.5 mg PO HS 10/18/22 12/08/22 metFORMIN HCL ER [Glucophage XR] 1,000 mg PO DAILY 10/18/22 12/08/22 metFORMIN HCL ER [Glucophage XR] 500 mg PO HS 10/18/22 12/08/22 Previous Rx's Medication Instructions Recorded Metoclopramide [Reglan] 20 mg PO AC-TID #30 tab 10/20/22 Pantoprazole [Protonix] 40 mg PO AC-BID #20 tab 10/20/22 Sucralfate [Carafate] 1 gm PO AC-TID #30 tab 10/20/22 Allergies Allergy/AdvReac Type Severity Reaction Status Date / Time pineapple Allergy Anaphylaxis Verified 02/28/23 15:26 Sulfa (Sulfonamide Allergy Rash/Hives Verified 02/28/23 15:26 Antibiotics) sulfamethoxazole Allergy Rash/Hives Verified 02/28/23 15:26 [From Bactrim] trimethoprim [From Bactrim] Allergy Rash/Hives Verified 02/28/23 15:26 Review of Systems ROS Other: All systems not noted in ROS Statement are negative. <Frederick Membreno - Last Filed: 02/28/23 16:29> ROS Other: All systems not noted in ROS Statement are negative. <Too Cardona - Last Filed: 03/08/23 00:45> ROS Statement: Those systems with pertinent positive or pertinent negative responses have been documented in the HPI. Past Medical History Past Medical History: Asthma, Diabetes Mellitus Additional Past Medical History / Comment(s): inappropriate sinus tachycardia for 8 years- sees Dr. Soliman, DM type 1, kidney stones, fatty liver, pancreatitis, hx. intractable vomiting-hosp. again in October History of Any Multi-Drug Resistant Organisms: None Reported Past Surgical History: Adenoidectomy, Cholecystectomy, Tonsillectomy Additional Past Surgical History / Comment(s): endometriosis laparoscopy, myringotomy/tubes in ears as a child Past Anesthesia/Blood Transfusion Reactions: No Reported Reaction, Family History of Problems w/ Anesthesia Additional Past Anesthesia/Blood Transfusion Reaction / Comment(s): pat. grandfather had some sort of problem in surgery, heart stopped, Past Psychological History: Anxiety Smoking Status: Never smoker Past Alcohol Use History: None Reported Past Drug Use History: Marijuana - Past Family History Mother Family Medical History: Hyperlipidemia Father Family Medical History: Diabetes Mellitus Additional Family Medical History / Comment(s): inappropriate sinus tachycardia <Frederick Membreno M - Last Filed: 02/28/23 16:29> General Exam Limitations: no limitations General appearance: alert, in no apparent distress Head exam: Present: atraumatic, normocephalic, normal inspection Eye exam: Present: normal appearance, PERRL, EOMI. Absent: scleral icterus, conjunctival injection, periorbital swelling ENT exam: Present: normal exam, normal oropharynx, mucous membranes moist Neck exam: Present: normal inspection, full ROM. Absent: tenderness, meningis mus, lymphadenopathy Respiratory exam: Present: normal lung sounds bilaterally. Absent: respiratory distress, wheezes, rales, rhonchi, stridor Cardiovascular Exam: Present: normal rhythm, tachycardia, normal heart sounds. Absent: systolic murmur, diastolic murmur, rubs, gallop, clicks Back exam: Absent: CVA tenderness (R), CVA tenderness (L) Neurological exam: Present: alert Skin exam: Present: warm, dry, intact, normal color. Absent: rash <Frederick Membreno - Last Filed: 02/28/23 16:29> General appearance: alert, in no apparent distress Head exam: Present: atraumatic, normocephalic, normal inspection Eye exam: Present: normal appearance, PERRL, EOMI. Absent: scleral icterus, c onjunctival injection, periorbital swelling ENT exam: Present: normal exam, mucous membranes moist Neck exam: Present: normal inspection. Absent: tenderness, meningismus, lymphadenopathy Respiratory exam: Present: normal lung sounds bilaterally. Absent: respiratory distress, wheezes, rales, rhonchi, stridor Cardiovascular Exam: Present: regular rate, normal rhythm, normal heart sounds. Absent: systolic murmur, diastolic murmur, rubs, gallop, clicks GI/Abdominal exam: Present: soft, normal bowel sounds. Absent: distended, tenderness, guarding, rebound, rigid Extremities exam: Present: normal inspection, full ROM, normal capillary refill. Absent: tenderness, pedal edema, joint swelling, calf tenderness Back exam: Present: normal inspection Neurological exam: Present: alert, oriented X3, CN II-XII intact Psychiatric exam: Present: normal affect, normal mood Skin exam: Present: warm, dry, intact, normal color. Absent: rash <Too Cardona - Last Filed: 03/08/23 00:45> Course <Too Cardona - Last Filed: 03/08/23 00:45> Vital Signs 02/28/23 02/28/23 02/28/23 15:23 16:18 17:22 Temperature 98.7 F Pulse Rate 154 H 110 H 110 H Respiratory 16 20 18 Rate Blood Pressure 152/111 178/107 159/108 O2 Sat by Pulse 97 98 100 Oximetry - Reevaluation(s) Reevaluation #1: Records reviewed (Too Cardona) Reevaluation #2: patient symptoms are improved (Too Cardona) Reevaluation #3: patient informed results questions answered (Too Cardona) Reevaluation #4: 03/08/23 00:44 Was pt. sent in by a medical professional or institution (, PA, [facility] [employer]PER, urgent care, hospital, or usp...) When possible be specific @ -no Did you speak to anyone other than the patient for history (EMS, parent, family, police, friend...)? What history was obtained from this source @ -no Did you review nursing and triage notes (agree or disagree)? Why? @ -agree Are old charts reviewed (outside hosp., previous admission, EMS record, old EKG, old radiological studies, urgent care reports/EKG's, usp records)? Report findings @ -yes Differential Diagnosis (chest pain, altered mental status, abdominal pain women, abdominal pain men, vaginal bleeding, weakness, fever, dyspnea, syncope, headache, dizziness, GI bleed, back pain, seizure, CVA, palpatations, mental health, musculoskeletal)? @ -prior EKG interpreted by me (3pts min.). @ -no X-rays interpreted by me (1pt min.). @ -no CT interpreted by me (1pt min.). @ -no U/S interpreted by me (1pt. min.). @ -no What testing was considered but not performed or refused? (CT, X-rays, U/S, labs)? Why? @ -none What meds were considered but not given or refused? Why? @ -none Did you discuss the management of the patient with other professionals (professionals i.e. , PA, [facility], lab, RT, psych nurse, delinquency prevention social worker, lipstick molder, teacher, professional security officer, clinical case manager)? Give summary @ -no Was smoking cessation discussed for >3mins.? @ -no Was critical care preformed (if so, how long)? @ -no Were there social determinants of health that impacted care today? How? (Homelessness, low income, unemployed, alcoholism, drug addiction, transportation, low edu. Level, literacy, decrease access to med. care, [place] [facility], rehab)? @ -none Was there de-escalation of care discussed even if they declined (Discuss DNR or withdrawal of care, Hospice)? DNR status @ -no What co-morbidities impacted this encounter? (DM, HTN, Smoking, COPD, CAD, Cancer, CVA, ARF, Chemo, Hep., AIDS, mental health diagnosis, sleep apnea, morbid obesity)? @ -none Was patient admitted / discharged? Hospital course, mention meds given and route, prescriptions, significant lab abnormalities, going to OR and other per tinent info. @ - 38 female to the emergency department for evaluation of recurrent nausea vomiting with persistent nausea vomiting here in the ER, patient feels dramatically improved here in the ER is okay for discharge home Discharge Undiagnosed new problem with uncertain prognosis? @ -no Drug Therapy requiring intensive monitoring for toxicity (Heparin, Nitro, Insulin, Cardizem)? @ -no Were any procedures done? @ -no Diagnosis/symptom? @ -Nausea and vomiting@ -Acute Uncomplicated (without systemic symptoms) or Complicated (systemic symptoms)? @ -Complicated Side effects of treatment? @ -no Exacerbation, Progression, or Severe Exacerbation? @ -exacerbation Poses a threat to life or bodily function? How? (Chest pain, [place], [place], pneumonia, PE, COPD, DKA, ARF, appy, cholecystitis, CVA, Diverticulitis, Homicidal, Suicidal, threat to staff... and all critical care pts) @ -no (Too Cardona) Medical Decision Making - EKG Data -: EKG Interpreted by Me <Frederick Membreno - Last Filed: 02/28/23 16:29> - Lab Data Result diagrams: 02/28/23 16:12 02/28/23 16:12 - EKG Data -: EKG Interpreted by Me <Too Cardona - Last Filed: 03/08/23 00:45> - Medical Decision Making 38 female presents today with the ER chronic nausea vomiting. Episode of current nausea vomiting is resolved patient feels well can be discharged home (Too Cardona) - Lab Data Lab Results 02/28/23 02/28/23 02/28/23 Range/Units 16:12 16:12 16:12 WBC 9.5 (3.8-10.6) k/uL RBC 4.92 (3.80-5.40) m/uL Hgb 15.1 (11.4-16.0) gm/dL Hct 43.9 (34.0-46.0) % MCV 89.1 (80.0-100.0) fL MCH 30.7 (25.0-35.0) pg MCHC 34.5 (31.0-37.0) g/dL RDW 11.9 (11.5-15.5) % Plt Count 252 (150-450) k/uL MPV 8.1 Neutrophils % 70 % Lymphocytes % 23 % Monocytes % 5 % Eosinophils % 1 % Basophils % 0 % Neutrophils # 6.6 (1.3-7.7) k/uL Lymphocytes # 2.2 (1.0-4.8) k/uL Monocytes # 0.5 (0-1.0) k/uL Eosinophils # 0.1 (0-0.7) k/uL Basophils # 0.0 (0-0.2) k/uL Sodium (137-145) mmol/L Potassium (3.5-5.1) mmol/L Chloride (98-107) mmol/L Carbon Dioxide (22-30) mmol/L Anion Gap mmol/L BUN (7-17) mg/dL Creatinine (0.52-1.04) mg/dL Est GFR (CKD-EPI)AfAm (>60 ml/min/1.73 sqM) Est GFR (CKD-EPI)NonAf (>60 ml/min/1.73 sqM) Glucose (74-99) mg/dL Plasma Lactic Acid Fred (0.7-2.0) mmol/L Calcium (8.4-10.2) mg/dL Total Bilirubin (0.2-1.3) mg/dL AST (14-36) U/L ALT (4-34) U/L Alkaline Phosphatase (38-126) U/L Total Protein (6.3-8.2) g/dL Albumin (3.5-5.0) g/dL Lipase (23-300) U/L Urine Color Colorless Urine Appearance Clear (Clear) Urine pH 6.0 (5.0-8.0) Ur Specific [place] 1.007 (1.001-1.035) Urine Protein 1+ H (Negative) Urine Glucose (UA) 3+ H (Negative) Urine Ketones 1+ H (Negative) Urine Blood Negative (Negative) Urine Nitrite Negative (Negative) Urine Bilirubin Negative (Negative) Urine Urobilinogen <2.0 (<2.0) mg/dL Ur Leukocyte Esterase Negative (Negative) Urine RBC 1 (0-5) /hpf Urine WBC 1 (0-5) /hpf Ur Squamous Epith Cells 1 (0-4) /hpf Urine Bacteria Rare H (None) /hpf Urine Mucus Rare H (None) /hpf Urine HCG, Qual Not Detected (Not Detectd) 02/28/23 02/28/23 Range/Units 16:12 16:12 WBC (3.8-10.6) k/uL RBC (3.80-5.40) m/uL Hgb (11.4-16.0) gm/dL Hct (34.0-46.0) % MCV (80.0-100.0) fL MCH (25.0-35.0) pg MCHC (31.0-37.0) g/dL RDW (11.5-15.5) % Plt Count (150-450) k/uL MPV Neutrophils % % Lymphocytes % % Monocytes % % Eosinophils % % Basophils % % Neutrophils # (1.3-7.7) k/uL Lymphocytes # (1.0-4.8) k/uL Monocytes # (0-1.0) k/uL Eosinophils # (0-0.7) k/uL Basophils # (0-0.2) k/uL Sodium 138 (137-145) mmol/L Potassium 3.5 (3.5-5.1) mmol/L Chloride 99 (98-107) mmol/L Carbon Dioxide 25 (22-30) mmol/L Anion Gap 14 mmol/L BUN 9 (7-17) mg/dL Creatinine 0.58 (0.52-1.04) mg/dL Est GFR (CKD-EPI)AfAm >90 (>60 ml/min/1.73 sqM) Est GFR (CKD-EPI)NonAf >90 (>60 ml/min/1.73 sqM) Glucose 199 H (74-99) mg/dL Plasma Lactic Acid Fred 1.3 (0.7-2.0) mmol/L Calcium 9.8 (8.4-10.2) mg/dL Total Bilirubin 1.1 (0.2-1.3) mg/dL AST 106 H (14-36) U/L ALT 83 H (4-34) U/L Alkaline Phosphatase 108 (38-126) U/L Total Protein 8.8 H (6.3-8.2) g/dL Albumin 4.9 (3.5-5.0) g/dL Lipase 175 (23-300) U/L Urine Color Urine Appearance (Clear) Urine pH (5.0-8.0) Ur Specific [place] (1.001-1.035) Urine Protein (Negative) Urine Glucose (UA) (Negative) Urine Ketones (Negative) Urine Blood (Negative) Urine Nitrite (Negative) Urine Bilirubin (Negative) Urine Urobilinogen (<2.0) mg/dL Ur Leukocyte Esterase (Negative) Urine RBC (0-5) /hpf Urine WBC (0-5) /hpf Ur Squamous Epith Cells (0-4) /hpf Urine Bacteria (None) /hpf Urine Mucus (None) /hpf Urine HCG, Qual (Not Detectd) - EKG Data EKG Comments: EKG performed at 16:15 sinus tachycardia rate of 1:15 LA 186 QRS 77 QT/QTC 432/500 (Frederick Membreno) Disposition <Frederick Membreno - Last Filed: 02/28/23 16:29> Is patient prescribed a controlled substance at d/c from ED?: No Time of Disposition: 17:00 <Too Cardona - Last Filed: 03/08/23 00:45> Clinical Impression: Nausea & vomiting, Weakness, Dehydration Disposition: HOME SELF-CARE Condition: Good Instructions (If sedation given, give patient instructions): Acute Nausea and Vomiting (ED) Referrals: Aryan Owens MD [Primary Care Provider] - 1-2 days
[2023-02-28 16:51] VITALS: PULSE 110
[2023-02-28 16:52] LABS: Basophils % (A) 0 %; Eosinophils # (A) 0.1 k/uL (0-0.7); Eosinophils % (A) 1 %; HCT 43.9 % (34.0-46.0); HGB 15.1 gm/dL (11.4-16.0); Lymphocytes # (A) 2.2 k/uL (1.0-4.8); Lymphocytes % (A) 23 %; MCH 30.7 pg (25.0-35.0); MCHC 34.5 g/dL (31.0-37.0); MCV 89.1 fL (80.0-100.0); Mean Platelet Volume 8.1; Monocytes # (A) 0.5 k/uL (0-1.0); Monocytes % (A) 5 %; Neutrophils # (A) 6.6 k/uL (1.3-7.7); Neutrophils % (A) 70 %; Platelet Count 252 k/uL (150-450); RBC 4.92 m/uL (3.80-5.40); RDW 11.9 % (11.5-15.5); WBC 9.5 k/uL (3.8-10.6)
[2023-02-28 17:04] LABS: ALT 83 U/L (4-34); AST 106 U/L (14-36); African American GFR (CKD) >90 (>60 ml/min/1.73 sqM); Albumin 4.9 g/dL (3.5-5.0); Alkaline Phosphatase 108 U/L (38-126); Anion Gap 14 mmol/L; Blood Urea Nitrogen 9 mg/dL (7-17); Calcium 9.8 mg/dL (8.4-10.2); Carbon Dioxide 25 mmol/L (22-30); Chloride 99 mmol/L (98-107); Glucose 199 mg/dL (74-99); Lipase 175 U/L (23-300); Non-African American GFR(CKD) >90 (>60 ml/min/1.73 sqM); Potassium 3.5 mmol/L (3.5-5.1); Sodium 138 mmol/L (137-145); Total Bilirubin 1.1 mg/dL (0.2-1.3); Total Protein 8.8 g/dL (6.3-8.2)
[2023-02-28 17:07] LABS: Appearance,Urine Clear (Clear); Bacteria,Urine Rare /hpf; Bilirubin,Urine Negative (Negative); Blood,Urine Negative (Negative); Color,Urine Colorless; Glucose,Urine (UA) 3+ (Negative); Ketones,Urine 1+ (Negative); Leukocyte Esterase,Urine Negative (Negative); Mucus,Urine Rare /hpf; Nitrite,Urine Negative (Negative); Protein,Urine 1+ (Negative); RBC,Urine 1 /hpf (0-5); Specific Gravity,Urine 1.007 (1.001-1.035); Squamous Epithelial Cell,Urine 1 /hpf (0-4); Urobilinogen,Urine <2.0 mg/dL (<2.0); WBC,Urine 1 /hpf (0-5)
[2023-02-28 17:30] VITALS: BP 159/108; RESP 18
[2023-02-28] MEDS ORDERED: ONDANSETRON 4 MG ODT STARTER PACK 2 TAB BTL PO STA (17:43)
[2023-02-28] MEDS ORDERED: traMADol 50 MG STARTER PACK 3 TAB BTL PO STA (17:43)
== END 2023-02-28 17:55 | disposition home or self-care (01) ==
LOC: EC 15:13
DX: R53.1 Weakness (principal); E86.0 Dehydration; J45.909 Unspecified asthma, uncomplicated; K76.0 Fatty (change of) liver, not elsewhere classified; E10.9 Type 1 diabetes mellitus without complications; F41.9 Anxiety disorder, unspecified; F12.90 Cannabis use, unspecified, uncomplicated; Z79.84 Long term (current) use of oral hypoglycemic drugs; Z79.4 Long term (current) use of insulin; Z79.899 Other long term (current) drug therapy; Z91.018 Allergy to other foods; Z88.2 Allergy status to sulfonamides; Z88.1 Allergy status to other antibiotic agents; Z90.49 Acquired absence of other specified parts of digestive tract
CPT/HCPCS: 36415; 93005; 80053; 83605; 83690; 85025; 81001; 81025; 99285; 96374; 96375 ×3; 96361; J1200; J2765; J1885; S0119; J1170

== ENCOUNTER → 2023-03-12 | Outpatient (CLI) | payer BC ==
--- NOTE | 2023-03-12 11:57 | NM ---
EXAMINATION TYPE: NM gastric emptying static DATE OF EXAM: 03/12/2023 COMPARISON: CT abdomen and pelvis 06/04/2019 CLINICAL INDICATION: Female, 38 years old with history of R11.2 NAUSEA WITH VOMITING, UNSPECIFIED; Following administration of 2.0 mCi Tc 99m Sulfur Colloid with 4 ounces of eggs, 1 piece of toast, 4 ounces of water, projection images of the abdomen were obtained 10 minutes post ingestion. Patient Emptying Values 1 Hour 37 % 2 Hours 83 % 3 Hours 97 % 4 Hours 100 % Gastroesophageal reflux: None IMPRESSION: Gastric emptying: Normal Gastroesophageal reflux: None Gastric emptying normal percentage values: 30 minutes: <70% of retention (> 30% emptying) suggests abnormally fast emptying. 60 minutes: <90% retention (>10% emptying) is normal; less than 30% retention (>70% emptying) suggest s abnormally rapid emptying. 90 minutes: <65% retention (> 35% emptying) is normal. 120 minutes: <60% retention (> 40% emptying) is normal. 180 minutes: <30% retention (> 70% emptying) is normal. Gastric emptying T-1/2: Solid: The normal range is 60-105 minutes Liquid only: Normal range is 10-45 minutes. Liquid only-children: At 60 minutes, normal range is 44-58 % . Liquid only-infants: At 60 minutes, normal range is 32-64 %. Additional references: Gastric Emptying Scintigraphy http://[email or web address]
== END | disposition home or self-care (01) ==
LOC: RADNMMAIN 06:49
PROVIDERS: ATTEND Internal Medicine Gastroenterology
DX: R11.2 Nausea with vomiting, unspecified (principal)
CPT/HCPCS: 78264; A9541